=== PATIENT | female | born 1990 | race African-American/Black ===

== ENCOUNTER 2021-04-04 09:02 | Emergency (ER) | payer OTHER ==
[~2021-04-04] VITALS: Ht 177.8 cm; Wt 89.4 kg
== END 2021-04-04 09:31 | disposition home or self-care (01) ==
LOC: ER 09:17
DX: S00.83XA Contusion of other part of head, initial encounter (principal); W22.09XA Striking against other stationary object, initial encounter; Y99.0 Civilian activity done for income or pay; Z33.1 Pregnant state, incidental; I10 Essential (primary) hypertension
CPT/HCPCS: 99283